=== PATIENT | male | born 1985 | race Caucasian/White ===

== ENCOUNTER 2022-10-19 13:23 | Emergency (ER) | payer OTHER ==
[~2022-10-19] VITALS: Ht 180.3 cm; Wt 95.3 kg
[2022-10-19] MEDS ORDERED: DIPHTH/TETANUS/ACEL. PERTUSSIS 0.5 ML SYR IM ONE (13:30)
[2022-10-19] MEDS ORDERED: AMOXICILLIN/CLAVULANATE K 875 MG TAB PO STA (13:35)
[2022-10-19] MEDS ORDERED: TETANUS/DIPHTHERIA TOX ADULT 0.5 ML SYR ONE (13:39)
[2022-10-19] MEDS ORDERED: AMOX TR-K CLV1 EAC2 PO (14:43)
== END 2022-10-19 15:01 | disposition home or self-care (01) ==
LOC: ER 13:27
DX: S61.451A Open bite of right hand, initial encounter (principal); W54.0XXA Bitten by dog, initial encounter; Y99.0 Civilian activity done for income or pay
CPT/HCPCS: 90714; 99283